=== PATIENT | female | born 1960 | race Caucasian/White ===

== ENCOUNTER 2022-03-12 17:53 | Emergency (ER) | payer MEDICAID ==
[~2022-03-12] VITALS: Ht 149.9 cm; Wt 49.9 kg
[2022-03-12 18:15] LABS: HEMATOCRIT 33.9 % (31.2-41.9); MEAN CORPUSCULAR HEMOGLOBIN 31.6 uug (24.7-32.8); MEAN CORPUSCULAR VOLUME 93.1 fL (75.5-95.3); PLATELET COUNT (AUTO) 150 K/uL (179-408)
[2022-03-12 18:22] LABS: CREATININE 3.1 mg/dL (0.6-1.3); POTASSIUM 3.3 mmol/L (3.5-5.1)
[2022-03-12] MEDS ORDERED: HALO2TAB PO (18:58)
[2022-03-12] MEDS ORDERED: OMEP20TA5 PO (18:58)
[2022-03-12] MEDS ORDERED: MIRT-121 PO (18:58)
[2022-03-12] MEDS ORDERED: LISI20TA30 PO (18:58)
[2022-03-12] MEDS ORDERED: CARV12.52 PO (18:58)
[2022-03-12] MEDS ORDERED: VIT1TABL46 PO (18:58)
[2022-03-12] MEDS ORDERED: QUET100T PO (18:58)
[2022-03-12] MEDS ORDERED: FERR325T28 PO (18:58)
[2022-03-12] MEDS ORDERED: LORA2TAB95 PO (18:58)
[2022-03-12] MEDS ORDERED: FOLI1TAB94 PO (18:58)
[2022-03-12] MEDS ORDERED: INSU100V36 SQ (18:58)
[2022-03-12] MEDS ORDERED: VITAMIN D3 PO (18:58)
[2022-03-12] MEDS ORDERED: DOC-Q-LACE PO (18:58)
[2022-03-12] MEDS ORDERED: SEVE800T8 PO (18:58)
[2022-03-12] MEDS ORDERED: SENN-261 PO (18:58)
[2022-03-12] MEDS ORDERED: BENZ2TAB7 PO (18:58)
[2022-03-12] MEDS ORDERED: ALLO300T2 PO (18:58)
[2022-03-12] MEDS ORDERED: ASPI81TA31 PO (18:58)
--- NOTE | 2022-03-12 21:40 | NUR ---
Patient discharged to home in stable condition. Written and verbal after care instructions given. Patient and son verbalizes understanding of instructions. Stressed follow up or return to ER for worsening s/s. Patient is accompanied by son.
[2022-03-12 22:10] VITALS: BP 113/81
== END 2022-03-12 21:45 ==
LOC: ER 17:58
DX: S00.83XA Contusion of other part of head, initial encounter (principal); W01.0XXA Fall on same level from slipping, tripping and stumbling without subsequent striking against object, initial encounter; Y92.89 Other specified places as the place of occurrence of the external cause; E11.22 Type 2 diabetes mellitus with diabetic chronic kidney disease; I12.0 Hypertensive chronic kidney disease with stage 5 chronic kidney disease or end stage renal disease; N18.6 End stage renal disease; Z99.2 Dependence on renal dialysis; Z79.4 Long term (current) use of insulin; E78.5 Hyperlipidemia, unspecified; Z86.73 Personal history of transient ischemic attack (TIA), and cerebral infarction without residual deficits; F31.9 Bipolar disorder, unspecified; Z79.899 Other long term (current) drug therapy; E87.6 Hypokalemia; M50.321 Other cervical disc degeneration at C4-C5 level
CPT/HCPCS: 36415; 70450; 70486; 85025; 93005; A4663